=== PATIENT | female | born 1980 | race Caucasian/White ===

== ENCOUNTER 2018-07-29 22:46 | Inpatient (IN) | payer MEDICARE, MEDICAID ==
[~2018-07-29] VITALS: Ht 162.6 cm; Wt 142.9 kg
[~2018-07-29 22:46] MED LIST: AZITHROMYCIN 2250 MG PO; CARVEDILOL12.5 MG PO; CEFDINIR300 MG PO; CYMBALTA60 MG PO; INVEGA6 MG PO; LISINOPRIL10 MG PO; LITHIUM CARBON300 M3 PO; LITHIUM CARBON450 MG PO; METFORMIN HCL500 MG PO; NEURONTIN 300300 M1 PO; OMEPRAZOLE40 MG PO; PRAZOSIN 1 MG CA1 M1 PO; PREDNISONE 10 M10 MG PO; PROAIR HFA8.5 GM INH; SYMBICORT160 MCG/4. INH
[2018-07-29 22:55] VITALS: BP 126/92
[2018-07-30 00:18] LABS: ABSOLUTE EOSINOPHILS 0.3 thou/uL (0.0-0.7); ABSOLUTE LYMPHOCYTES 2.4 thou/uL (0.8-5.3); ABSOLUTE MONOCYTES 0.8 thou/uL (0.0-1.2); BASOPHILS 0.3 %; EOSINOPHILS 3.2 %; HEMOGLOBIN 12.4 gm/dL (12.0-15.0); LYMPHOCYTES 25.2 %; MCH 26.1 pg (26.0-34.0); MCHC 32.6 g/dL (28.0-37.0); MONOCYTES 7.9 %; MPV 6.9 fl. (7.2-11.1); NUCLEATED RBCS 0 /100WBC; PLATELET COUNT* 346 thou/uL (150-400); POLYS 63.4 %; RBC 4.75 mil/uL (4.20-5.00); RDW-CV 18.2 % (10.5-14.5); WBC 9.5 thou/uL (4.0-11.0)
[2018-07-30 00:25] LABS: PROTIME 10.3 Seconds (9.20-11.50)
[2018-07-30 00:30] LABS: ANION GAP 9 mmol/L (7-16); BUN 6 mg/dL (7-18); CALCIUM 9.3 mg/dL (8.5-10.1); CHLORIDE 100 mmol/L (98-107); CO2 27 mmol/L (21-32); CREATININE 0.9 mg/dL (0.6-1.3); GLUCOSE 236 mg/dL (70-99); POTASSIUM 4.1 mmol/L (3.5-5.1); SODIUM 136 mmol/L (136-145); TROPONIN-I LEVEL <0.06 ng/mL (<0.06)
[2018-07-30 00:32] LABS: ALBUMIN 3.1 g/dL (3.4-5.0); ALKALINE PHOSPHATASE 93 U/L (46-116); NT-PRO BRAIN NAT PEPTIDE 8 pg/mL (<300); SGOT 25 U/L (15-37); SGPT 44 U/L (30-65); TOTAL BILIRUBIN 0.2 mg/dL (<0.1-1.0); TOTAL PROTEIN 6.9 g/dL (6.4-8.2)
[2018-07-30 00:50] VITALS: BP 122/63
[2018-07-30 02:00] VITALS: BP 128/76
[2018-07-30 08:00] VITALS: BP 150/63
[2018-07-30 10:49] VITALS: BP 128/76
[2018-07-30 23:07] LABS: GLYCOHEMOGLOBIN (HGB A1C) 7.5 % (4.8-5.6)
== END 2018-07-30 12:45 | disposition left against medical advice (07) | DRG 189 ==
LOC: M.ERS 22:46 → M.3W 07-30 00:35 → M.TBA-ER 07-30 00:35 → M.3W 07-30 01:58
PROVIDERS: Emergency Medicine; ADMIT Internal Medicine
DX: J96.01 Acute respiratory failure with hypoxia (principal); J45.52 Severe persistent asthma with status asthmaticus; J44.1 Chronic obstructive pulmonary disease with (acute) exacerbation; Z68.43 Body mass index [BMI] 50.0-59.9, adult; I10 Essential (primary) hypertension; F41.1 Generalized anxiety disorder; F32.9 Major depressive disorder, single episode, unspecified; E66.01 Morbid (severe) obesity due to excess calories; F17.210 Nicotine dependence, cigarettes, uncomplicated; G47.33 Obstructive sleep apnea (adult) (pediatric); E11.9 Type 2 diabetes mellitus without complications; Z53.21 Procedure and treatment not carried out due to patient leaving prior to being seen by health care provider; Z90.49 Acquired absence of other specified parts of digestive tract; Z90.710 Acquired absence of both cervix and uterus; Z88.7 Allergy status to serum and vaccine; Z88.8 Allergy status to other drugs, medicaments and biological substances